=== PATIENT | male | born 1975 | race Two or more races ===

== ENCOUNTER 2018-09-24 20:03 | Emergency (ER) | payer OTHER ==
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
== END 2018-09-24 22:00 | disposition home or self-care (01) ==
LOC: MW.ED 20:03
DX: S20.212A Contusion of left front wall of thorax, initial encounter (principal); M54.6 Pain in thoracic spine; V89.2XXA Person injured in unspecified motor-vehicle accident, traffic, initial encounter
CPT/HCPCS: 71046; 71046-26; 72100; 72100-26; 99282; 99284